=== PATIENT | male | born 1985 | race Caucasian/White ===

== ENCOUNTER → 2017-03-20 | Outpatient (CLI) | payer BC | END | disposition home or self-care (01) | LOC: GMA 14:31 | PROVIDERS: ATTEND Nurse Practitioner Acute Care | DX: R53.83 Other fatigue (principal) ==

== ENCOUNTER → 2019-06-09 | Outpatient (CLI) | payer BC ==
--- NOTE | 2019-06-10 08:20 | MRI ---
EXAM DESCRIPTION: Knee,Left CLINICAL HISTORY: LEFT KNEE PAIN. Pain with walking, unable to bend knee, prior injury. Hit on medial side of knee. COMPARISON: Knee radiograph 05/31/2019. TECHNIQUE: MRI of the left knee is performed with multiplanar multi sequence imaging, without intravenous contrast. FINDINGS: Bone and joint: Mild subcortical bone marrow edema/contusion adjacent to the proximal MCL attachment. Mild contusion/bone marrow edema along the lateral femoral condyle peripherally. Small knee joint effusion. Cartilage: No focal cartilage defect. Medial meniscus: Intact Lateral meniscus: Intact Anterior cruciate ligament: Intact Posterior cruciate ligament: Intact Medial collateral ligament: Proximal fiber irregularity and edema consistent with high-grade partial tears (with fluid gapping between the anterior and posterior proximal MCL attachment fibers, some of which are intact) resulting in grade 2-3 sprain. Associated adjacent medial knee joint capsular sprain and edema. Lateral collateral ligament: Intact Popliteus tendon: Intact Biceps femoris tendon: Intact Iliotibial band: Intact Medial and lateral retinaculum: Mild edema and thinning of the medial retinaculum. Extensor mechanism: The distal quadriceps tendon is intact. The patella tendon is intact. Soft tissues: No significant Cyr's cyst. Moderate soft tissue edema along the anterior medial aspect of the knee. IMPRESSION: 1. High-grade MCL injury (grade 2-3 sprain). 2. Medial knee joint capsular sprain and mild sprain of the medial patellofemoral retinaculum. Soft tissue edema overlies the anterior medial knee. 3. Medial femoral condyle subcortical bone marrow edema/contusion adjacent to the proximal MCL injury. Mild contusion also along the lateral femoral condyle peripheral. Electronically signed by: David Mace DO 06/10/2019 8:18 AM CDT
== END ==
LOC: MRI 09:08
PROVIDERS: ATTEND Family Medicine
DX: M23.207 Derangement of unspecified meniscus due to old tear or injury, left knee (principal); S76.112A Strain of left quadriceps muscle, fascia and tendon, initial encounter

== ENCOUNTER → 2019-06-10 | Outpatient (CLI) | payer BC ==
--- NOTE | 2019-06-10 14:28 | RAD ---
EXAM DESCRIPTION: Knee,Left Complete x-ray four views CLINICAL HISTORY: 34 years, Male, PAIN IN LEFT KNEE COMPARISON: None TECHNIQUE: Four views of the left knee standing FINDINGS: No fracture or dislocation. Bones appear normally mineralized with normal trabecular pattern. Narrowed appearance of medial compartment on standing frontal view with mild spurring of the tibial spines and at the intercondylar notch. Lateral view shows normal position of the patella. No patellar spurring or enthesopathy. No suprapatellar knee joint effusion. Normal contour of quadriceps and patellar tendons. No abnormal patellar tilt or subluxation on patellar sunrise view. IMPRESSION: Negative for fracture or dislocation. Electronically signed by: Filippo Sawant MD 06/10/2019 2:26 PM CDT
--- NOTE | 2019-06-10 14:29 | RAD ---
EXAM DESCRIPTION: Pelvis CLINICAL HISTORY: 34 years Male, PAIN IN LEFT HIP COMPARISON: None. FINDINGS: Single x-ray view the pelvis shows no fracture or lytic lesion. Normal bony mineralization. Sacrum and SI joints appear intact. Proximal femurs appear intact. IMPRESSION: Negative for fracture. Electronically signed by: Filippo Sawant MD 06/10/2019 2:27 PM CDT
== END ==
LOC: RAD 06-09 10:51
PROVIDERS: ATTEND Orthopaedic Surgery
DX: M25.562 Pain in left knee (principal); M25.552 Pain in left hip